=== PATIENT | female | born 1955 | race Caucasian/White ===

== ENCOUNTER 2024-10-02 09:08 | Outpatient (REF) | payer MEDICARE, BC, SELFPAY | END 2024-10-02 09:09 | disposition home or self-care (01) | LOC: HO.SH 09:08 | PROVIDERS: Visit Provider Nurse Practitioner Family | DX: Z01.118 Encounter for examination of ears and hearing with other abnormal findings (principal); H90.6 Mixed conductive and sensorineural hearing loss, bilateral | CPT/HCPCS: 92557; 92567 ==

== ENCOUNTER 2025-03-24 14:13 | Outpatient (AMB) | payer MEDICARE, SELFPAY ==
--- NOTE | 2025-03-24 14:15 | MHC.PC.OV ---
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: No Allergies No Known Allergies Allergy (Verified 03/24/25 14:19) Tobacco use date assessed: 03/24/25 Fall risk assessment: No Falls in past year Last assessed Fall Risk: 03/24/25 Dental Screening Dental Screen Date: 03/24/25 Did you have a dental visit in the last 12 months?: Yes Did you have a dental problem in the last 6 months where you did not have access to dental care?: No Was dental information given to patient?: Patient has dentist HPI HPI Comments History of Present Illness Details The patient is a 69 year old female with a past medical history of htn, hld, abnormal tft, cervical ddd, prediabetes, osteopenia presenting to [facility]. Transfer from [facility] CV: on losartan, zetia. 134/84. Denies chest pain, exertional dyspnea. Very frustrated by weight gain despite diet and exercise. Colon 03/06/2022-10 years Mammo 07/2024 DXA 2023 [facility] Medical History H/O mammogram Surgical History H/O repair of ear bone History of right oophorectomy History of colonoscopy Family History Maternal Aunt No problems noted. Mother Autoimmune disorder COPD (chronic obstructive pulmonary disease) Diabetes Father COPD (chronic obstructive pulmonary disease) ETOH abuse Brother COPD (chronic obstructive pulmonary disease) ETOH abuse Paternal Aunt Breast cancer Other Substance abuse Social History Patient Tobacco Use Status: Former Tobacco user (quit 42 years ago) Years Smoked: 15 unknown amount of cigarettes per day e-Cigarette/Vaping Use: Never Used Second Hand Smoke Exposure: No service: No Current occupational status: retired Cognitive needs: No Hearing needs: Yes (trouble hearing out of right ear.) Vision needs: Yes (just had cataracts.) Questionnaire PHQ-9 Over the last 2 weeks, how often have you been bothered by any of the following problems? 1. Little interest or pleasure in doing things: several days 2. Feeling down, depressed, or hopeless: several days 3. Trouble falling or staying asleep, or sleeping too much: not at all 4. Feeling tired or having little energy: nearly every day 5. Poor appetite or overeating: not at all 6. Feeling bad about yourself - or that you are a failure or have let yourself or your family down: several days 7. Trouble concentrating on things, such as reading the newspaper or watching television: not at all 8. Moving or speaking so slowly that other people could have noticed. Or the opposite - being so fidgety or restless that you have been moving around a lot more than usual: not at all 9. Thoughts that you would be better off or of hurting yourself in some way: not at all Total score: 6 Depression Screening Interpretation: Positive Depression Screening Follow-up: Existing condition Depression Screening Done: Yes 74713 - PHQ-9 Billing: Yes Source: Developed by Drs. Anthony Villaseñor, Latha Morejon, Vic Baumann and colleagues, with an educational nettie from [employer]. Thrive Questionnaire Date Thrive assessed: 03/24/25 I am a: Patient What is your living situation today?: I have a steady place to live Within the past 12 months, did the food you bought not last and you didn't have the money to get more?: Never true Within the past 12 months, did you worry whether your food would run out before you got money to buy more?: Never true Do you have trouble paying for medicines?: No Do you have trouble getting transportation to medical appointments?: No Do you have trouble paying your heating and electricity bill?: No Do you have trouble taking care of your child, family member or friend?: No Do you have trouble with day-to-day activities such as bathing, preparing meals, shopping, managing finances, etc.?: No Are you currently unemployed and looking for a job?: No Are you interested in more education?: No Please select the resources that you would like help with: None Currently or been in a relationship where the following occur: No concerns reported THRIVE Score: 0 AUDIT C Alcohol Use Questionnaire (AUDIT-C) 1. How often do you have a drink containing alcohol?: 2-3 times a week 2. How many drinks containing alcohol do you have on a typical day when you are drinking?: 1 or 2 3. How often do you have six or more drinks on one occasion?: Less than monthly Total Score: 4 BRUCE-7 AMB Questionnaire BRUCE-7 Date BRUCE - 7 assessed: 03/24/25 Feeling nervous, anxious, or on edge: 0 = Not at all Not being able to stop or control worryin = Not at all Worrying too much about different things: 0 = Not at all Trouble relaxin = Not at all Being so restless that it is hard to sit still: 0 = Not at all Becoming easily annoyed or irritable: 0 = Not at all Feeling afraid as if something awful might happen: 0 = Not at all Total BRUCE-7 score (0-4 normal; 5-9 mild; 10-14 moderate; 15-21 severe): 0 Source: Developed by Drs. Anthony Villaseñor, Latha Morejon, Vic Baumann and colleagues, with an educational nettie from [employer]. BRUCE-7 Assessment Billing BRUCE-7 Assessment Tool: BRUCE-7 Assessment 72599 Physical exam (Primary Care) Vital Signs: Last Vital Signs Temp 98 F 03/24/25 14:23 Pulse 80 03/24/25 14:23 Resp 12 03/24/25 14:23 BP 134/84 03/24/25 14:23 Pulse Ox 97 03/24/25 14:23 Oxygen Delivery Method Room Air 03/24/25 14:23 BMI result Body Mass Index 34.1 Tobacco/Smoking Status: Tobacco use Status Tobacco use date assessed 03/24/25 03/24/25 14:19 Patient Tobacco Use Status Former Tobacco user (quit 42 03/24/25 14:34 years ago) e-Cigarette/Vaping Use Never Used 03/24/25 14:34 PHQ-9: PHQ-9 Score PHQ-9: Total score 6 03/24/25 14:42 Depression Screening Interpretation: Positive Depression Screening Follow-up: Existing condition Thrive Assessment: Date of Thrive Assessment Date Thrive assessed 03/24/25 03/24/25 14:37 Currently or been in a relationship where the following occur: No concerns reported Coding Level of Care Code New Pt Level 4 (48538) Diagnoses Primary hypertension I10 Hypertension type: primary hypertension Hyperlipidemia, unspecified hyperlipidemia type E78.5 Hyperlipidemia type: unspecified Obesity, unspecified class, unspecified obesity type, unspecified whether serious comorbidity present E66.9 Obesity type: unspecified obesity type Obesity classification: unspecified obesity classification Serious obesity comorbidity presence: unspecified whether serious comorbidity present Additional Codes BRUCE-7 Assessment Billing - BRUCE-7 Assessment Tool: BRUCE-7 Assessment [id number] ([id number]) PHQ-9 - 69734 - PHQ-9 Billing: Yes ([id number]) Assessment & Plan Assessment & Plan (1) Hypertension: Code(s): I10 - Essential (primary) hypertension Category: Medical Qualifiers: Hypertension type: primary hypertension Qualified Code(s): I10 - Essential (primary) hypertension (2) Hyperlipidemia: Code(s): E78.5 - Hyperlipidemia, unspecified Category: Medical Qualifiers: Hyperlipidemia type: unspecified Qualified Code(s): E78.5 - Hyperlipidemia, unspecified (3) Obesity: Code(s): E66.9 - Obesity, unspecified Category: Medical Qualifiers: Obesity type: unspecified obesity type Obesity classification: unspecified obesity classification Serious obesity comorbidity presence: unspecified whether serious comorbidity present Qualified Code(s): E66.9 - Obesity, unspecified Plan 69 year old to establish care Past medical, surgical, social history reviewed HTN-well controlled on current medication Obesity-would like GLP but if not covered she will proceed with phentermine Orders: Orders Lipid Panel 03/24/25 E66.9 - Obesity, unspecified, E78.5 - Hyperlipidemia, unspecified, I10 - Essential (primary) hypertension, R35.89 - Other polyuria, R94.6 - Abnormal results of thyroid function studies TSH reflex Free T4 03/24/25 E66.9 - Obesity, unspecified, E78.5 - Hyperlipidemia, unspecified, I10 - Essential (primary) hypertension, R35.89 - Other polyuria, R94.6 - Abnormal results of thyroid function studies Hemoglobin A1c 03/24/25 E66.9 - Obesity, unspecified, E78.5 - Hyperlipidemia, unspecified, I10 - Essential (primary) hypertension, R35.89 - Other polyuria, R94.6 - Abnormal results of thyroid function studies Complete Blood Count Auto Diff 03/24/25 E66.9 - Obesity, unspecified, E78.5 - Hyperlipidemia, unspecified, I10 - Essential (primary) hypertension, R35.89 - Other polyuria, R94.6 - Abnormal results of thyroid function studies Comprehensive Met. Panel 03/24/25 E66.9 - Obesity, unspecified, E78.5 - Hyperlipidemia, unspecified, I10 - Essential (primary) hypertension, R35.89 - Other polyuria, R94.6 - Abnormal results of thyroid function studies Medications: New Zepbound (tirzepatide (weight loss)) for 4 weeks 2.5 mg (0.5 mL) subcut QWEEK 2 mL 3RF NS E66.9 - Obesity, unspecified, E78.5 - Hyperlipidemia, unspecified, I10 - Essential (primary) hypertension ezetimibe 10 mg PO DAILY 90 tabs 3RF phentermine must administer 30 minutes before or 1-2 hours after breakfast [id number] [facility] [id number] 37.5 mg PO DAILY 30 caps 3RF losartan 50 mg PO DAILY 90 tabs 3RF
[2025-03-24 14:23] VITALS: BP 134/84; PULSE 80; RESP 12; TEMP 36.6; O2SAT 97; BMI 34.1
== END 2025-03-24 14:58 | disposition home or self-care (01) ==
LOC: HO.HMCFM 14:14
PROVIDERS: PCP Internal Medicine; Visit Provider Internal Medicine
DX: I10 Essential (primary) hypertension (principal); E78.5 Hyperlipidemia, unspecified; E66.9 Obesity, unspecified; Z68.34 Body mass index [BMI] 34.0-34.9, adult

== ENCOUNTER → 2025-03-24 14:13 | Outpatient (BNVA) | payer MEDICARE, SELFPAY | PROVIDERS: PCP Internal Medicine; Visit Provider Internal Medicine | DX: I10 Essential (primary) hypertension (principal); E78.5 Hyperlipidemia, unspecified; E66.9 Obesity, unspecified; Z68.34 Body mass index [BMI] 34.0-34.9, adult | CPT/HCPCS: 96127; 99202 ==